=== PATIENT | male | born 1965 | race Caucasian/White ===

== ENCOUNTER 2016-07-22 14:28 | Emergency (ER) | payer OTHER, SELFPAY ==
[2016-07-22 15:16] LABS: BASOPHILS 1.1 %; BASOPHILS ABSOLUTE 0.06 10/3/uL (0.0-0.16); EOSINOPHILS 1.7 %; EOSINOPHILS ABSOLUTE 0.09 10/3/uL (0.0-0.53); HEMATOCRIT 29.8 % (40.0-51.0); HEMOGLOBIN 8.7 g/dL (13.6-17.8); IMMATURE GRANULOCYTES 0.2 %; IMMATURE GRANULOCYTES ABSOLUTE 0.01 10/3/uL (0.0-0.11); LYMPHOCYTES 19.6 %; LYMPHOCYTES ABSOLUTE 1.03 10/3/uL (0.67-4.30); MEAN CORPUS HGB CONC 29.2 g/dL (32.0-36.0); MEAN CORPUSCULAR HEMOGLOB 22.9 pg (26.0-34.0); MEAN CORPUSCULAR VOLUME 78.4 fL (80-100); MEAN PLATELET VOLUME 9.1 fL (9.2-13.0); MONOCYTES ABSOLUTE 0.58 10/3/uL (0.21-1.20); NEUTROPHILS 66.4 %; NEUTROPHILS ABSOLUTE 3.49 10/3/uL (2.02-8.40); PLATELET COUNT 352 10/3/uL (150-400); WHITE BLOOD CELLS 5.3 10/3/uL (4.5-10.5)
[2016-07-22 15:24] LABS: MANUAL DIFF NO %
[2016-07-22 15:32] LABS: A/G RATIO 0.8 (0.7-1.9); ALBUMIN 3.3 G/DL (3.5-5.0); ALKALINE PHOSPHATASE 74 U/L (45-117); BUN (BLOOD UREA NITROGEN) 16 MG/DL (6-23); CALCIUM, SERUM 8.6 MG/DL (8.5-10.4); CHLORIDE, SERUM 101 MMOL/L (96-112); CO2 (CARBON DIOXIDE) 25 MMOL/L (24-34); CREATININE 0.91 MG/DL (0.70-1.30); GFR AFRICAN AMERICAN 113 ML/MIN (>=60); GFR NON AFRICAN AMERICAN 98 ML/MIN (>=60); GLOBULIN 4.1 G/DL (2.5-4.1); GLUCOSE, SERUM 184 MG/DL (60-99); POTASSIUM, SERUM 4.1 MMOL/L (3.5-5.3); SGOT(AST) 13 U/L (5-40); SGPT(ALT) 18 U/L (5-65); SODIUM, SERUM 136 MMOL/L (135-148); TOTAL BILIRUBIN 0.4 MG/DL (0-1.2); TOTAL PROTEIN 7.4 G/DL (6.0-8.5)
[2016-07-22 18:59] LABS: ASCORBIC ACID (UR NOT ORDER) 40 (NEG); BILIRUBIN, URINE NEGATIVE (NEG); ER URINALYSIS TAT 0 Hrs 12 Mins; KETONE, URINE NEGATIVE (NEG); LEUKOCYTE ESTERASE(NOT OR SMALL (NEG); NITRITE (URINE) NEG (NEG); WBC (NOT ORDERED) (RFLEX) 3 (0-5)
== END 2016-07-22 20:06 | disposition home or self-care (01) ==
LOC: ER 14:28
PROVIDERS: Emergency Medicine
DX: R30.0 Dysuria (principal); D64.9 Anemia, unspecified; C20 Malignant neoplasm of rectum; Z87.891 Personal history of nicotine dependence; I25.2 Old myocardial infarction; Z95.5 Presence of coronary angioplasty implant and graft; Z88.0 Allergy status to penicillin
CPT/HCPCS: 80053; 81001; 83690; 85025; 87086; 99284

== ENCOUNTER 2016-07-27 13:14 | Inpatient (IN) | payer OTHER, SELFPAY ==
--- NOTE | ~2016-07-27 | DS ---
Discharge Summary [facility] [address] [place]. [address] NAME: STORM JONES : 67 STATUS : DIS IN PAT#: [id number] AGE: 51 ADM/REG DATE : 07/27/16 MR#: [id number] REPORT SERV DATE: 07/29/16 DICTATED BY: DATE: REPORT STATUS : Draft TRANSCRIBED BY: MODL DATE: 07/28/16 ADMISSION DATE: 07/27/2016 DISCHARGE DATE: 07/28/2016 The patient was admitted to the [facility]. CONSULTANTS: [facility]. DISCHARGE DIAGNOSES: 1. Severe anaphylactic reaction to cetuximab-resolved. 2. Metastatic adenocarcinoma of the rectosigmoid region-receiving radiation therapy and chemotherapy with future plans for surgical resection. 3. History of coronary artery disease with two stents placed in 05/2016. 4. Fnh-igebdqz-pdfshvamw diabetes mellitus type 2-with steroid-induced hyperglycemia this admission. 5. 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 IMAGING AND DIAGNOSTICS: Portable chest x-ray, 07/27, shows lungs clear and heart size normal. PERTINENT LABS: CBC showing hemoglobin values from 7.8 to 8.8 with platelets normal. Comprehensive metabolic panel normal with the exception of potassium 3.4, glucose values ranging from 180-210, calcium 7.7, total protein 5.7, albumin 2.6. Normal liver enzymes. Lipase is normal. Lactic acid level negative. Blood cultures showed no growth at one day. BRIEF HISTORY: For full details, please see the previously dictated history of present illness by Dr. Elmer Brown. This is a 51-year-old, white male with recently diagnosed metastatic adenocarcinoma of the rectosigmoid region, who presented to the Oncology Clinic for initiation of cetuximab infusion. He received a test dose and was found to be hypotensive, with mild facial edema. He received 1 amp of epinephrine, Decadron, Benadryl, Kytril, but remained hypotensive. So, received a second amp of epinephrine and was transferred to the emergency department for further evaluation. He was hypotensive there with blood pressure 70/40, was given IV fluids, and placed on a Levophed drip for presumed anaphylaxis. Admission was requested of the Hospitalist Service. HOSPITAL COURSE: The patient was admitted to the IMCU, on IV fluids, Levophed drip, which he required only briefly, and scheduled IV steroids and IV Benadryl. He had no recurrence of anaphylactic symptoms and was able to be weaned off the Levophed just 6 hours after admission. He had no other issues during the hospitalization with the exception of elevated blood sugars in response to IV Solu-Medrol. As biphasic reaction is possible in 1-21% of those who experience anaphylaxis, he will be discharged with a few days of an oral steroid to take following discharge. He expressed reluctance to take more than a few days because of the impact that it has on his diabetes. His home antihypertensives will remain on hold as well, until he is evaluated by Oncology. He has an appointment on 08/[address] Bruce Calderon. Discharge Summary [address] [address] NAME: STORM JONES : 67 STATUS : DIS IN PAT#: [id number] AGE: 51 ADM/REG DATE : 07/27/16 MR#: [id number] REPORT SERV DATE: 07/29/16 DICTATED BY: DATE: REPORT STATUS : Draft TRANSCRIBED BY: MODL DATE: 07/28/16 He was also educated that he needs to return to the emergency department if he develops any recurrence of facial swelling, low-blood pressure, hives, or GI symptoms suggestive of recurrent anaphylaxis to include nausea, vomiting, and diarrhea. DISCHARGE MEDICATIONS: 1. Aspirin 81 mg p.o. q.a.m. 2. B12 1000 mcg p.o. q.a.m. 3. Gabapentin 300 mg p.o. twice a day. 4. Reglan 10 mg p.o. three times daily. 5. Protonix 40 mg p.o. q.a.m. 6. Flomax 0.4 mg p.o. q.a.m. 7. Brilinta 90 mg p.o. twice a day-the patient is holding until 07/29. 8. Ferrous gluconate 325 mg p.o. q.a.m. 9. Crestor 40 mg p.o. at bedtime. 10.Glucophage 500 mg p.o. q.a.m.-patient is holding until 07/29. 11.Ultram 50 mg p.o. every 4 hours as needed. 12.Sublingual nitroglycerin 0.4 mg as needed. 13.Zofran 8 mg p.o. twice a day as needed. 14.Compazine 10 mg p.o. every 4 hours as needed. 15.Tylenol 1000 mg p.o. twice a day as needed. 16.Dulcolax 5 mg p.o. daily as needed. 17.Prednisone 40 mg p.o. daily for 3 days then discontinue. 18.Lisinopril 2.5 mg p.o. q.a.m. 19.Lopressor 25 mg p.o. twice a day are presently on hold until blood pressure is re- evaluated by Oncology. Thirty five minutes was spent in completion of the discharge including coordination with Oncology. KILEY/OREN Rafael Doty M.D. / [id number] CC: Shanell Acharya M.D. Davey B. Daniel, M.D.
--- NOTE | ~2016-07-27 | HP ---
History And Physical [id number] [place]. [address] NAME: STORM JONES : 67 STATUS : ADM IN [facility]#: [id number] AGE: 51 ADM/REG DATE : 07/27/16 MR#: [id number] REPORT SERV DATE: 07/27/16 DICTATED BY: MAGGY BROWN II DATE: 07/27/16 REPORT STATUS : Draft TRANSCRIBED BY: MODL DATE: 07/27/16 DATE OF ADMISSION: 07/27/2016 CHIEF COMPLAINT: Hypotension, post drug infusion. HISTORY OF PRESENT ILLNESS: The patient is a 51-year-old male with a history of recently diagnosed metastatic colon cancer, chronic anemia, diabetes, and hypertension, who presented to clinic today for initiation of infusion of Erbitux. The patient received only the test dose and was found to be hypotensive. He received one amp of epinephrine, Decadron, Benadryl, and Kytril at 1218 hours. He was still hypotensive and received a second amp of epinephrine at 1235. His blood pressure stabilized, and he was transferred to the emergency room where he was subsequently placed on a Levophed drip and given IV fluids. Further workup is fairly unremarkable including negative chest x-ray and other labs were normal. The patient denies any current complaints of nausea, vomiting, diarrhea, shortness of breath, chest pain. He is drowsy after getting Benadryl, but otherwise feels well. REVIEW OF SYSTEMS: A 10-point review of systems otherwise negative except for HPI. PAST MEDICAL HISTORY: 1. Metastatic colon cancer. Receiving concurrent chemo and radiation with plan for surgery. 2. Coronary artery disease, status post recent UT in May, on Brilinta with two stents placed. 3. Diabetes mellitus, type 2, on metformin. 4. Hypertension. 5. Anemia of chronic blood loss and iron deficiency secondary to colon mass. SURGICAL HISTORY: Port placement and cardiac stents. SOCIAL HISTORY: The patient smoked for about 20 years, but has not smoked in the past 10. Also denies any alcohol or drug use. FAMILY HISTORY: Without history of malignancy. HOME MEDICATIONS: Tylenol, aspirin, Dulcolax, vitamin B12, Neurontin, lisinopril, Glucophage, Reglan 10, Lopressor, NitroQuick, Zofran, Protonix, Compazine, Crestor, Flomax, Brilinta, Ultram, ferrous gluconate. PHYSICAL EXAMINATION: VITAL SIGNS: Heart rate 75, blood pressure 108/75, temperature 97.1, respirations 16. GENERAL: The patient is somewhat somnolent, but arousable and oriented x3. In no acute distress. NECK: Supple, nontender. No lymphadenopathy or thyromegaly. HEENT: Moist mucous membranes. Pupils are equal, round, reactive to light. Conjunctivae clear. History And Physical [address] [address] NAME: STORM JONES : 67 STATUS : ADM IN PAT#: [id number] AGE: 51 ADM/REG DATE : 07/27/16 MR#: [id number] REPORT SERV DATE: 07/27/16 DICTATED BY: MAGGY BROWN II DATE: 07/27/16 REPORT STATUS : Draft TRANSCRIBED BY: OREN DATE: 07/27/16 RESPIRATORY: Lungs clear to auscultation bilaterally. No wheezes, rhonchi, or rales. Nonlabored breathing. CARDIOVASCULAR: Regular rate and rhythm. No murmurs, rubs, or gallops. ABDOMEN: Soft, nontender, nondistended. Normoactive bowel sounds. EXTREMITIES: No cyanosis, clubbing, or edema. SKIN: Very faint erythematous macular rash on the left neck and shoulder with some spots on arms bilaterally. NEURO: No focal deficits. LABORATORY DATA: Sodium 142, potassium 3.4, chloride 109, CO2 of 24, BUN 9, creatinine 0.85, glucose 213, calcium 7.7. Total protein 5.7, albumin 2.6, total bilirubin of 0.6. Alkaline phosphatase 54, ALT 14, AST 7. WBC 5.4, hemoglobin 8.8, platelets 291, INR 1.3. Lactate 2. RADIOGRAPHIC DATA: Chest x-ray with no acute abnormality. ASSESSMENT AND PLAN: The patient is a 51-year-old male with: 1. Likely anaphylactic shock due to the patient's test dose of Erbitux. The patient's vitals have stabilized, status post two doses of epinephrine and now maintaining on Levophed at 4. We will continue IV fluids. Solu-Medrol, Benadryl, and wean his Levophed as tolerated. 2. Chronic anemia, blood loss, and iron deficiency. Currently stable, transfuse p.r.n. Continue his oral iron. 3. Metastatic colon cancer. Deferred Oncology. 4. Diabetes mellitus, type 2. Sliding scale insulin. Holding metformin. 5. Hypertension. Holding all of his medications clearly. 6. History of coronary artery disease and recent myocardial infarction with two stents. We will continue his aspirin, statin, and Brilinta. 7. The patient is full code. 8. SCDs for deep venous thrombosis prophylaxis. No heparin or Lovenox given the patient's history of gastrointestinal bleeding. JOSE/OREN Maggy Brown II, MD / [id number] CC: MD Marcel Gross II, M.D.
[2016-07-27] MEDS ORDERED: VITAMIN B-121000 MC1 PO (13:45)
[2016-07-27] MEDS ORDERED: ASAB PO (13:45)
[2016-07-27] MEDS ORDERED: BRILINTA90 MG PO (13:46)
[2016-07-27] MEDS ORDERED: FERROUS GLUCONATE PO (13:46)
[2016-07-27] MEDS ORDERED: CRESTOR40 MG PO (13:47)
[2016-07-27] MEDS ORDERED: PROTONIX PO (13:47)
[2016-07-27] MEDS ORDERED: NEUR300 PO (13:47)
[2016-07-27] MEDS ORDERED: GLUCPH PO (13:48)
[2016-07-27] MEDS ORDERED: PRIN2.5 PO (13:48)
[2016-07-27] MEDS ORDERED: NITROQUICK0.4 MG PO (13:49)
[2016-07-27] MEDS ORDERED: ZOFRANODT8 PO (13:49)
[2016-07-27] MEDS ORDERED: ULTRAM50 PO (13:49)
[2016-07-27] MEDS ORDERED: LOP25 PO (13:49)
[2016-07-27] MEDS ORDERED: FLOMAX4 PO (13:50)
[2016-07-27] MEDS ORDERED: COMP10B PO (13:51)
[2016-07-27] MEDS ORDERED: REG PO (13:51)
[2016-07-27] MEDS ORDERED: CHEMO THERAPY IV (13:52)
[2016-07-27] MEDS ORDERED: ACET500CAP PO (13:53)
[2016-07-27] MEDS ORDERED: BIST PO (13:53)
[2016-07-27 14:20] LABS: BASOPHILS 0 %; EOSINOPHILS 0.2 %; EOSINOPHILS ABSOLUTE 0.01 10/3/uL (0.0-0.53); HEMATOCRIT 30.4 % (40.0-51.0); HEMOGLOBIN 8.8 g/dL (13.6-17.8); IMMATURE GRANULOCYTES 0.4 %; IMMATURE GRANULOCYTES ABSOLUTE 0.02 10/3/uL (0.0-0.11); LYMPHOCYTES 4.6 %; LYMPHOCYTES ABSOLUTE 0.25 10/3/uL (0.67-4.30); MANUAL DIFF NO %; MEAN CORPUS HGB CONC 28.9 g/dL (32.0-36.0); MEAN CORPUSCULAR HEMOGLOB 23.2 pg (26.0-34.0); MEAN PLATELET VOLUME 9.1 fL (9.2-13.0); MONOCYTES 1.7 %; MONOCYTES ABSOLUTE 0.09 10/3/uL (0.21-1.20); NEUTROPHILS 93.1 %; NEUTROPHILS ABSOLUTE 5.03 10/3/uL (2.02-8.40); PLATELET COUNT 291 10/3/uL (150-400); RBC DISTRIBUTION WIDTH 19.3 % (12.0-16.0); WHITE BLOOD CELLS 5.4 10/3/uL (4.5-10.5)
[2016-07-27 14:25] LABS: INTERNATIONAL NORMAL RATI 1.3 UNITS (-); PROTIME (NOT ORD) 16.2 SEC (12.0-14.5)
[2016-07-27 14:36] LABS: ALKALINE PHOSPHATASE 64 U/L (45-117); CALCIUM, SERUM 7.7 MG/DL (8.5-10.4); CHLORIDE, SERUM 109 MMOL/L (96-112); CO2 (CARBON DIOXIDE) 24 MMOL/L (24-34); CREATININE 0.85 MG/DL (0.70-1.30); GFR AFRICAN AMERICAN 118 ML/MIN (>=60); GFR NON AFRICAN AMERICAN 102 ML/MIN (>=60); GLUCOSE, SERUM 213 MG/DL (60-99); POTASSIUM, SERUM 3.4 MMOL/L (3.5-5.3); SGOT(AST) 7 U/L (5-40); SGPT(ALT) 14 U/L (5-65); SODIUM, SERUM 142 MMOL/L (135-148); TOTAL BILIRUBIN 0.6 MG/DL (0-1.2)
[2016-07-27 14:37] LABS: A/G RATIO 0.8 (0.7-1.9); ALBUMIN 2.6 G/DL (3.5-5.0); BUN (BLOOD UREA NITROGEN) 9 MG/DL (6-23); GLOBULIN 3.1 G/DL (2.5-4.1); TOTAL PROTEIN 5.7 G/DL (6.0-8.5)
[2016-07-28 08:38] LABS: BASOPHILS 0 %; EOSINOPHILS 0.2 %; EOSINOPHILS ABSOLUTE 0.01 10/3/uL (0.0-0.53); HEMOGLOBIN 7.7 g/dL (13.6-17.8); IMMATURE GRANULOCYTES 0.2 %; IMMATURE GRANULOCYTES ABSOLUTE 0.01 10/3/uL (0.0-0.11); LYMPHOCYTES 7.7 %; LYMPHOCYTES ABSOLUTE 0.43 10/3/uL (0.67-4.30); MEAN CORPUS HGB CONC 29.5 g/dL (32.0-36.0); MEAN CORPUSCULAR HEMOGLOB 23.4 pg (26.0-34.0); MEAN CORPUSCULAR VOLUME 79.3 fL (80-100); MEAN PLATELET VOLUME 9.2 fL (9.2-13.0); MONOCYTES 2.9 %; MONOCYTES ABSOLUTE 0.16 10/3/uL (0.21-1.20); NEUTROPHILS ABSOLUTE 4.94 10/3/uL (2.02-8.40); PLATELET COUNT 309 10/3/uL (150-400); RBC DISTRIBUTION WIDTH 19.2 % (12.0-16.0); RED CELL COUNT 3.29 10/6/uL (4.7-6.1); WHITE BLOOD CELLS 5.6 10/3/uL (4.5-10.5)
[2016-07-28 08:40] LABS: HEMATOCRIT 26.1 % (40.0-51.0); MANUAL DIFF NO %
[2016-07-28 08:45] LABS: A/G RATIO 0.8 (0.7-1.9); ALBUMIN 2.5 G/DL (3.5-5.0); ALKALINE PHOSPHATASE 57 U/L (45-117); BUN (BLOOD UREA NITROGEN) 12 MG/DL (6-23); CALCIUM, SERUM 8.4 MG/DL (8.5-10.4); CHLORIDE, SERUM 110 MMOL/L (96-112); CO2 (CARBON DIOXIDE) 22 MMOL/L (24-34); CREATININE 0.83 MG/DL (0.70-1.30); GFR AFRICAN AMERICAN 119 ML/MIN (>=60); GFR NON AFRICAN AMERICAN 103 ML/MIN (>=60); GLOBULIN 3.3 G/DL (2.5-4.1); GLUCOSE, SERUM 201 MG/DL (60-99); POTASSIUM, SERUM 3.9 MMOL/L (3.5-5.3); SGOT(AST) 6 U/L (5-40); SGPT(ALT) 11 U/L (5-65); SODIUM, SERUM 144 MMOL/L (135-148); TOTAL BILIRUBIN 0.7 MG/DL (0-1.2); TOTAL PROTEIN 5.8 G/DL (6.0-8.5)
[2016-07-28] MEDS ORDERED: P10 PO (15:44)
== END 2016-07-28 17:54 | disposition home or self-care (01) | DRG 918 ==
LOC: ER 13:14 → IMCU 16:19
PROVIDERS: Emergency Medicine; Internal Medicine
DX: T45.1X5A Adverse effect of antineoplastic and immunosuppressive drugs, initial encounter (principal); E11.65 Type 2 diabetes mellitus with hyperglycemia; C19 Malignant neoplasm of rectosigmoid junction; D62 Acute posthemorrhagic anemia; T88.6XXA Anaphylactic reaction due to adverse effect of correct drug or medicament properly administered, initial encounter; I10 Essential (primary) hypertension; I25.10 Atherosclerotic heart disease of native coronary artery without angina pectoris; Z95.5 Presence of coronary angioplasty implant and graft
CPT/HCPCS: 71010; 80053; 81001; 82962; 83605; 83690; 84132; 85025; 85610; 87040; 87641; 93005; 96365; 99285; A9270-GY; J1200; J2930

== ENCOUNTER 2016-08-20 13:22 | Inpatient (IN) | payer OTHER, SELFPAY ==
--- NOTE | ~2016-08-20 | DS ---
Discharge Summary [facility] [address] [place]. [address] NAME: STORM JONES : 67 STATUS : DIS IN PAT#: [id number] AGE: 51 ADM/REG DATE : 08/20/16 MR#: [id number] REPORT SERV DATE: 08/23/16 DICTATED BY: MISSAEL BENITEZ DATE: 08/22/16 REPORT STATUS : Draft TRANSCRIBED BY: MODL DATE: 08/22/16 ADMISSION DATE: 08/20/2016 DISCHARGE DATE: 08/22/2016 DISCHARGE DIAGNOSES: 1. Lower gastrointestinal bleed. 2. Rectal cancer. Currently under chemo. Plans for radiation underway. 3. Coronary artery disease with a recent myocardial infarction and a bare metal stent x2 in the right coronary artery. 4. Anemia of acute on chronic disease. 5. Type 2 diabetes mellitus. 6. Hyperlipidemia. 7. Benign prostatic hypertrophy. CONSULTANTS DURING THIS HOSPITALIZATION: Dr. Shane Davis of Radiation Oncology, Dr. Bruce Calderon of Hematology-Oncology, and Dr. Steffen Gu of Gastroenterology. INVASIVE PROCEDURES DONE DURING THIS HOSPITALIZATION: None. BRIEF HISTORY OF PRESENT ILLNESS: The patient is a 51-year-old male with complaints of rectal bleeding and orthostasis, admitted directly from Dr. Bruce Calderon's office for further workup and evaluation. For detailed history and physical exam, please see my note dictated on 08/20/2016. HOSPITAL COURSE: After being admitted to the hospital, this patient was noticed to be on Brilinta and aspirin. At that time, since he has already had more than 30 days of Brilinta with a bare metal stent, it was decided that Brilinta can be safely discontinued. Brilinta was discontinued. Dr. Calderon saw the patient in consultation and Dr. Davis saw the patient in consultation thinking that we may have to do radiation therapy to the rectal area for further management and control of the bleeding. However, after 24 hours of stopping the Brilinta, the patient's bleeding resolved spontaneously. Dr. Gu saw the patient in consultation if there was any other GI intervention to be done at this time. All consultants and myself agree that conservative management is the best approach, continuing his chemo and radiation and then later assessing if there was any other bleeding. His H and H remained stable. No need of transfusion was done. He is feeling well. He is tolerating a diet and all consultants have signed off his care. The patient is being discharged in stable condition. DISCHARGE DISPOSITION: Home. DISCHARGE ACTIVITY: As tolerated. DISCHARGE DIET: Regular. DISCHARGE MEDICATIONS: Aspirin 81 mg once daily, vitamin B12 of 1000 mcg once daily, Neurontin 300 mg twice daily, morphine SR 15 mg every 12 hours, Protonix 40 mg once daily, Discharge Summary [address] [address] NAME: STORM JONES : 67 STATUS : DIS IN PAT#: [id number] AGE: 51 ADM/REG DATE : 08/20/16 MR#: [id number] REPORT SERV DATE: 08/23/16 DICTATED BY: MISSAEL BENITEZ DATE: 08/22/16 REPORT STATUS : Draft TRANSCRIBED BY: OREN DATE: 08/22/16 Flomax 0.4 mg once daily, Crestor 40 mg once daily, metformin 500 mg p.o. every morning, nitroglycerin 0.4 sublingual p.r.n. for chest pain, Zofran 8 mg twice daily p.r.n., Compazine 10 mg every four hours p.r.n., Reglan 10 mg three times daily p.r.n., Tylenol 1000 mg p.o. twice daily p.r.n., Dulcolax suppository 5 mg daily p.r.n. for constipation, and oxycodone 5 mg every four hours p.r.n. for breakthrough pain. DISCHARGE FOLLOWUP: With Dr. Bruce Calderon as scheduled previously. With Dr. Shane Davis when to initiate radiation therapy. With Dr. Nicolás Ellis for his cardiac care. More than 30 minutes spent planning this patient's discharge, reconciling medications, writing prescriptions, discussing hospital care, and followup with the patient. CHUCKIE/OREN Missael Benitez M.D. / [id number] CC: Shanell Barrientos PAUL G III Rajiv Verma, M.D. Marcus Wagner, MD Davey B. Daniel, M.D.
--- NOTE | ~2016-08-20 | HP ---
History And Physical [address] [place]. [address] NAME: STORM JONES : 67 STATUS : ADM IN PAT#: [id number] AGE: 51 ADM/REG DATE : 08/20/16 MR#: [id number] REPORT SERV DATE: 08/20/16 DICTATED BY: MISSAEL BENITEZ DATE: 08/20/16 REPORT STATUS : Draft TRANSCRIBED BY: MODL DATE: 08/20/16 DATE OF ADMISSION: 08/20/2016 CHIEF COMPLAINT: Rectal bleeding. HISTORY OF PRESENT ILLNESS: The patient is a 51-year-old white male, referred from Dr. Bruce Calderon's office with complaints of rectal bleeding. This patient said that he has had ongoing rectal bleeding that had never stopped since his diagnosis of rectal cancer. In the interim, on 06/01/2016, he ended up having a myocardial infarction in which he received a stent to his RCA by Dr. Nicolás Ellis and hence he has been on Brilinta since that time. However, after confirming what the patient's card says, it is a bare-metal stent, and after discussing with Cardiology, it was thought that we could safely stop the Brilinta today. This patient was in Dr. Calderon's office where he had become significantly orthostatic. He was very dizzy when he stood up. He denied any nausea or vomiting. He has had ryan blood per rectum. In the last 24 hours, he reports having six bowel movements that were nothing but blood. He denies any fever, chills. He has not had any chest pain. He has not had any shortness of breath. So, he received IV fluids in Dr. Calderon's office and then transferred to the hospital for further evaluation and management. REVIEW OF SYSTEMS: A 10-point review of systems otherwise is negative. PAST MEDICAL HISTORY: Significant for metastatic colon cancer, receiving chemo and plans for radiation in the near future. He had coronary artery disease, status post recent [place], on Brilinta, with two stents placed. Type 2 diabetes mellitus, hypertension, and anemia of chronic blood loss, now with acute hemorrhage. PAST SURGICAL HISTORY: Significant for port placement, cardiac stents, and bilateral hernia repair. ALLERGIES: PENICILLIN AND ERBITUX. HOME MEDICATIONS: Aspirin 81 mg once daily, B12, Brilinta 90 mg twice daily, Crestor 40 mg once daily, iron b.i.d., gabapentin 300 mg three times daily, lisinopril, metformin, Lopressor, Protonix. SOCIAL HISTORY: He is single. Quit smoking 20 years ago, but smoked one pack per day prior to that. He has history of drinking. No use of illicit substances. He has not been drinking for a long time as well. FAMILY HISTORY: Mother at age 84 of COPD. One uncle with lung cancer. Father at age 59 of heart attack. PHYSICAL EXAMINATION: GENERAL: White male, lying on a gurney, appears to be in no obvious respiratory distress. He is awake, alert. He is oriented. History And Physical [address] [address] NAME: STORM JONES : 67 STATUS : ADM IN [facility]#: [id number] AGE: 51 ADM/REG DATE : 08/20/16 MR#: [id number] REPORT SERV DATE: 08/20/16 DICTATED BY: MISSAEL BENITEZ DATE: 08/20/16 REPORT STATUS : Draft TRANSCRIBED BY: OREN DATE: 08/20/16 VITAL SIGNS: Blood pressure is 104/65, temperature is 99.3, saturation of 99% on room air. HEENT: Head is normocephalic, atraumatic. Pupils are equal, round, and reactive to light. Extraocular muscles are intact. Sclerae are anicteric. Conjunctivae are pale. Oropharynx: Pale mucous membranes. Tongue protrusion midline. Uvula midline. NECK: Supple. No jugular venous distention. No carotid bruits or thyromegaly is appreciated. No lymphadenopathy in the neck is palpable. HEART: Regular rate and rhythm. No murmurs, rubs, or gallops are heard. PMI nondisplaced. LUNGS: Clear to auscultation both anteriorly and posteriorly without rales, rhonchi, wheezing, or consolidation. ABDOMEN: Soft, nontender. Good bowel sounds. No rebound or guarding. No organomegaly. EXTREMITIES: Without cyanosis, clubbing, or edema. Pallor of the skin is noted. NEUROLOGIC: Seems to be grossly intact except typical [id number] type of sensorineural loss is noted in both upper and lower extremities. LABORATORIES: No labs are available at this time. Last known hemoglobin in Dr. Bruce Calderon's office was 11. IMPRESSION: 1. Lower gastrointestinal bleed, most likely due to rectal cancer. 2. Rectal carcinoma. 3. Coronary artery disease, status post bare-metal stent. 4. Yax-yymiset-kaiakftro diabetes. 5. Anemia of acute blood loss on chronic disease anemia. PLAN: The patient will be admitted. Serial H and H's will be done. GI consultation by Dr. Steffen Gu will be obtained. Radiation/Oncology consultation will be obtained by Dr. Samuel as he may need radiation to control his bleeding. We will obtain type and screen. Transfuse if H and H are less than 7 and 21. We will give IV fluids, reasonable pain control, home medications, sliding scale insulin. At this time, we will discontinue Brilinta as he has reached almost three months of therapy and his stent is bare-mental stent. This patient remains a full code. SV/MODL Missael Benitez M.D. / [id number] CC: Shanell Barrientos M.D. Rajiv Verma, M.D. Davey B. Daniel, M.D.
[~2016-08-20 13:22] MED LIST: ACET500CAP PO; ASAB PO; BIST PO; BRILINTA90 MG PO; CHEMO THERAPY IV; COMP10B PO; CRESTOR40 MG PO; FERROUS GLUCONATE PO; FLOMAX4 PO; GLUCPH PO; LOP25 PO; NEUR300 PO; NITROQUICK0.4 MG PO; P10 PO; PRIN2.5 PO; PROTONIX PO; REG PO; ULTRAM50 PO; VITAMIN B-121000 MC1 PO; ZOFRANODT8 PO
[2016-08-20] MEDS ORDERED: MSCONT15 PO (14:15)
[2016-08-20] MEDS ORDERED: OXYCOD PO (14:24)
[2016-08-20 16:49] LABS: HEMATOCRIT 33.6 % (40.0-51.0); HEMOGLOBIN 10.1 g/dL (13.6-17.8)
[2016-08-20 16:56] LABS: INTERNATIONAL NORMAL RATI 1.1 UNITS (-); PARTIAL THROMBO TIME 28.9 SEC (22.5-37.2)
[2016-08-20 17:07] LABS: A/G RATIO 0.8 (0.7-1.9); ALBUMIN 2.8 G/DL (3.5-5.0); BUN (BLOOD UREA NITROGEN) 11 MG/DL (6-23); CALCIUM, SERUM 8.6 MG/DL (8.5-10.4); CHLORIDE, SERUM 104 MMOL/L (96-112); CO2 (CARBON DIOXIDE) 26 MMOL/L (24-34); CREATININE 0.71 MG/DL (0.70-1.30); GFR AFRICAN AMERICAN 127 ML/MIN (>=60); GFR NON AFRICAN AMERICAN 109 ML/MIN (>=60); GLOBULIN 3.4 G/DL (2.5-4.1); GLUCOSE, SERUM 195 MG/DL (60-99); PHOSPHORUS, SERUM 2.7 MG/DL (2.5-4.5); POTASSIUM, SERUM 4.1 MMOL/L (3.5-5.3); SGOT(AST) 18 U/L (5-40); SGPT(ALT) 23 U/L (5-65); SODIUM, SERUM 138 MMOL/L (135-148); TOTAL BILIRUBIN 0.3 MG/DL (0-1.2); TOTAL PROTEIN 6.2 G/DL (6.0-8.5)
[2016-08-20 17:08] LABS: ALKALINE PHOSPHATASE 78 U/L (45-117)
[2016-08-20 22:38] LABS: HEMATOCRIT 34.2 % (40.0-51.0); HEMOGLOBIN 10.3 g/dL (13.6-17.8)
[2016-08-21 06:25] LABS: ALBUMIN 2.6 G/DL (3.5-5.0); BUN (BLOOD UREA NITROGEN) 8 MG/DL (6-23); CALCIUM, SERUM 8.6 MG/DL (8.5-10.4); CHLORIDE, SERUM 107 MMOL/L (96-112); CO2 (CARBON DIOXIDE) 26 MMOL/L (24-34); CREATININE 0.72 MG/DL (0.70-1.30); GFR AFRICAN AMERICAN 126 ML/MIN (>=60); GFR NON AFRICAN AMERICAN 109 ML/MIN (>=60); PHOSPHORUS, SERUM 2.9 MG/DL (2.5-4.5); POTASSIUM, SERUM 4.2 MMOL/L (3.5-5.3); SODIUM, SERUM 140 MMOL/L (135-148)
[2016-08-21 06:26] LABS: GLUCOSE, SERUM 110 MG/DL (60-99)
[2016-08-21 06:40] LABS: HEMATOCRIT 33.5 % (40.0-51.0); HEMOGLOBIN 10.1 g/dL (13.6-17.8); MEAN CORPUS HGB CONC 30.1 g/dL (32.0-36.0); MEAN CORPUSCULAR HEMOGLOB 24.9 pg (26.0-34.0); MEAN PLATELET VOLUME 9.7 fL (9.2-13.0); PLATELET COUNT 290 10/3/uL (150-400); RBC DISTRIBUTION WIDTH 21.4 % (12.0-16.0)
[2016-08-21 06:41] LABS: MANUAL DIFF YES %; MEAN CORPUSCULAR VOLUME 82.5 fL (80-100); RED CELL COUNT 4.06 10/6/uL (4.7-6.1)
[2016-08-21 08:32] LABS: BAND NEUTROPHILS 12 %; BASOPHILS 2 %; BASOPHILS ABSOLUTE (CALC) 0.06 10/3/uL (0.0-0.16); EOSINOPHILS 1 %; EOSINOPHILS ABSOLUTE (CALC) 0.03 10/3/uL (0.0-0.53); HYPOCHROMIA 1+ (3-10/OIF) (0-2/OIF); LYMPHOCYTES 40 %; MONOCYTES 30 %; NEUTROPHILS ABSOLUTE (CALC) 0.81 10/3/uL (2.02-8.40); PLATELET ESTIMATE ADQ (ADEQUATE); SEGMENTED NEUTROPHIL (0) 15 %; TOTAL NUCLEATED CELLS 100
[2016-08-21 08:33] LABS: ANISOCYTOSIS 1+ (5-10/OIF) (0-5/OIF); MICROCYTES 1+ (5-10/OIF) (0-5/OIF); POIKILOCYTOSIS 1+ (5-10/OIF) (0-5/OIF); TEARDROP SHAPED RBCS OCC (0-2/OIF)
[2016-08-21 10:13] LABS: HEMATOCRIT 31.9 % (40.0-51.0); HEMOGLOBIN 9.7 g/dL (13.6-17.8)
[2016-08-21 17:36] LABS: HEMATOCRIT 32.8 % (40.0-51.0); HEMOGLOBIN 9.8 g/dL (13.6-17.8)
[2016-08-22 04:24] LABS: HEMATOCRIT 31.2 % (40.0-51.0); HEMOGLOBIN 9.2 g/dL (13.6-17.8); MEAN CORPUS HGB CONC 29.5 g/dL (32.0-36.0); MEAN CORPUSCULAR HEMOGLOB 24.3 pg (26.0-34.0); MEAN CORPUSCULAR VOLUME 82.5 fL (80-100); MEAN PLATELET VOLUME 9.5 fL (9.2-13.0); PLATELET COUNT 305 10/3/uL (150-400); RBC DISTRIBUTION WIDTH 21.2 % (12.0-16.0); RED CELL COUNT 3.78 10/6/uL (4.7-6.1); WHITE BLOOD CELLS 3.1 10/3/uL (4.5-10.5)
[2016-08-22 04:25] LABS: MANUAL DIFF YES %
[2016-08-22 05:42] LABS: BAND NEUTROPHILS 17 %; EOSINOPHILS 2 %; EOSINOPHILS ABSOLUTE (CALC) 0.06 10/3/uL (0.0-0.53); LYMPHOCYTES 46 %; LYMPHOCYTES ABSOLUTE (CALC) 1.43 10/3/uL (0.67-4.30); MONOCYTES 20 %; MONOCYTES ABSOLUTE (CALC) 0.62 10/3/uL (0.21-1.20); NEUTROPHILS ABSOLUTE (CALC) 0.99 10/3/uL (2.02-8.40); PLATELET ESTIMATE ADQ (ADEQUATE); SEGMENTED NEUTROPHIL (0) 15 %; TOTAL NUCLEATED CELLS 100
[2016-08-22 05:43] LABS: ANISOCYTOSIS 1+ (5-10/OIF) (0-5/OIF); ELLIPTOCYTES 1+ (3-10/OIF) (0-2/OIF)
[2016-08-22 05:44] LABS: TEARDROP SHAPED RBCS OCC (0-2/OIF)
== END 2016-08-22 11:21 | disposition home or self-care (01) | DRG 375 ==
LOC: 4EA 13:22
PROVIDERS: Internal Medicine
DX: C20 Malignant neoplasm of rectum (principal); K62.5 Hemorrhage of anus and rectum; I95.9 Hypotension, unspecified; D70.9 Neutropenia, unspecified; C78.7 Secondary malignant neoplasm of liver and intrahepatic bile duct; D62 Acute posthemorrhagic anemia; I10 Essential (primary) hypertension; D50.0 Iron deficiency anemia secondary to blood loss (chronic); E11.9 Type 2 diabetes mellitus without complications; I25.10 Atherosclerotic heart disease of native coronary artery without angina pectoris; D63.8 Anemia in other chronic diseases classified elsewhere; E78.5 Hyperlipidemia, unspecified; N40.0 Benign prostatic hyperplasia without lower urinary tract symptoms; E78.00 Pure hypercholesterolemia, unspecified; T45.525A Adverse effect of antithrombotic drugs, initial encounter; Z95.5 Presence of coronary angioplasty implant and graft; Z79.82 Long term (current) use of aspirin; Z98.890 Other specified postprocedural states; Z87.891 Personal history of nicotine dependence; Z82.3 Family history of stroke; Z92.21 Personal history of antineoplastic chemotherapy; Z88.0 Allergy status to penicillin; Z88.8 Allergy status to other drugs, medicaments and biological substances; Z82.49 Family history of ischemic heart disease and other diseases of the circulatory system; Z82.5 Family history of asthma and other chronic lower respiratory diseases
CPT/HCPCS: 36415; 80053; 80069; 82962; 83735; 84100; 85014; 85018; 85025; 85610; 85730; 86850; 86900; 86901; A9270-GY; J1447